=== PATIENT | male | born 1990 | race Caucasian/White ===

== ENCOUNTER 2017-12-12 23:41 | Emergency (ER) | payer MEDICAID ==
[~2017-12-12] VITALS: Ht 193 cm; Wt 72.6 kg
[2017-12-12] MEDS ORDERED: LORazepam Inj 2mg/ml 1ml IM ONE (23:45)
[2017-12-13] VITALS: BP 118/96
--- NOTE | 2017-12-13 00:22 | Emergency Room Report ---
History of Present Illness General Chief Complaint: Overdose Source: Patient Present Illness HPI Is a 27-year-old male with no past medical history. He presents with chief complaint of feeling anxious and shaky since his been smoking methamphetamine all day today. He was doing this to "partying it up." Denies suicidal thoughts or homicidal thought. Denies hallucination or delusion. [place] numb and stiff throughout his body. Call 911. Never had this problem before. Allergies: Coded Allergies: No Known Allergies (Unverified , 12/12/17) Patient History Past Medical History: see triage record, old chart reviewed Past Surgical History: other Pertinent Family History: none Social History: Reports: drug use Immunizations: other Reviewed Nursing Documentation: PMH: Agreed; PSxH: Agreed Nursing Documentation-PMH Hx Gastrointestinal Problems: Yes - Hepatitis c Review of Systems Eye: Denies: eye pain, blurred vision ENT: Denies: ear pain, nose congestion, throat swelling Respiratory: Denies: cough, shortness of breath Cardiovascular: Denies: chest pain, palpitations Gastrointestinal: Denies: abdominal pain, diarrhea, nausea, vomiting Musculoskeletal: Denies: back pain, joint pain Skin: Denies: rash Neurological: Denies: headache, numbness Endocrine: Denies: increased thirst, increased urine Hematologic/Lymphatic: Denies: easy bruising All Other Systems: negative except mentioned in HPI Physical Exam Vital Signs Date Time Temp Pulse Resp B/P (MAP) Pulse Ox O2 Delivery O2 Flow Rate FiO2 12/12/17 23:36 97.8 104 18 132/70 99 Room Air 97.9 vitals unremarkable Sp02 EP Interpretation: reviewed, normal General Appearance: well appearing, no apparent distress, alert Head: normocephalic, atraumatic Eyes: bilateral eye PERRL, bilateral eye EOMI ENT: hearing grossly normal, normal pharynx Neck: full range of motion, supple, no meningismus Respiratory: chest non-tender, lungs clear, normal breath sounds Cardiovascular #1: regular rate, rhythm, no murmur Gastrointestinal: normal bowel sounds, non tender, no mass, no organomegaly, no bruit, non-distended Musculoskeletal: back normal, gait/station normal, normal range of motion Neurologic: alert, oriented x3 Psychiatric: anxious Skin: warm/dry Medical Decision Making Diagnostic Impression: Primary Impression: Panic attack Additional Impression: Methamphetamine abuse ER Course Patient with a panic attack from amphetamine. No suicidal thoughts homicidal thought. No criteria for 5150. This patient is a chronic risk of self injury due to poor impulse control, limited coping skills, and judgment intermittently impaired by intoxication. I believe that the available clinical evidence to suggest that these characteristics derived primarily from personality disorder and are likely very stable over time. Hospitalization would likely attenuate risk of self-harm only during residential period, without lasting risk reduction. Serious self-harm , while possible, would likely be inadvertent, and because of impulsivity, and foreseeable. For these reasons, I do not believe hospitalization would provide meaningful reduction in risk of self-harm. Last Vital Signs Date Time Temp Pulse Resp B/P (MAP) Pulse Ox O2 Delivery O2 Flow Rate FiO2 12/13/17 00:00 84 20 12/13/17 00:00 97.8 118/96 98 Room Air 97.8 Status: improved Disposition: HOME, SELF-CARE Condition: Stable Additional Instructions: Stop using drugs. Follow-up with your doctor in 7 days. Go to rehabilitation. Return if worse. Javon Claire MD Dec 13, 2017 00:22
[2017-12-13 06:26] VITALS: BP 115/75
== END 2017-12-13 04:00 | disposition home or self-care (01) ==
LOC: EDBD 23:41 → EMR 12-13 03:46
DX: F41.0 Panic disorder [episodic paroxysmal anxiety] (principal); F15.10 Other stimulant abuse, uncomplicated
CPT/HCPCS: 96372; 99283

== ENCOUNTER 2018-12-05 12:27 | Emergency (ER) | payer MEDICAID ==
[~2018-12-05] VITALS: Ht 193 cm; Wt 77.1 kg
[~2018-12-05 12:27] MED LIST: LITHIUM CARBON300 M3 PO; OLANZAPINE20 MG ORAL
--- NOTE | 2018-12-05 12:30 | NUR ---
ED Nurse Note: PATIENT BROUGHT IN BY AMBULANCE [address], PATIENT CALLED [facility] FOR FEELING ANXIOUS AFTER TAKING CRYSTAL METH. patient is alert awake x3 ambulatory, breathing unlabored and even, appears to be calm and drowsy. patient placed in a room, provided hospital gown. vital signs stable.
--- NOTE | 2018-12-05 12:34 | NUR ---
ED Nurse Note: patient reports he did "20 sacs of meth" which he smoked, he reports he did meth "to get high." patient denies any suicidal ideation at this time. patient reports he called [facility] because he became anxious that his "breathing might stop" patient's vital signs stable.
--- NOTE | 2018-12-05 12:46 | Emergency Room Report ---
History of Present Illness General Chief Complaint: Substance Abuse Source: Patient, EMS Present Illness HPI 28-year-old male patient presents the ER brought by ambulance complaining of methamphetamine use. Patient reports that he has a history of meth use, previously seen in this ER for similar symptoms. Denies chest pain or shortness of breath. Reports feeling cold. Patient is resting comfortably in bed in no acute distress. Denies vomiting or other factors. Denies thoughts of hurting himself or others. Allergies: Coded Allergies: No Known Allergies (Unverified , 12/12/17) Patient History Past Medical History: see triage record Reviewed Nursing Documentation: PMH: Agreed; PSxH: Agreed Nursing Documentation-PMH Past Medical History: No History, Except For Hx Gastrointestinal Problems: Yes - Hepatitis c Review of Systems All Other Systems: negative except mentioned in HPI Physical Exam Vital Signs Date Time Temp Pulse Resp B/P (MAP) Pulse Ox O2 Delivery O2 Flow Rate FiO2 12/05/18 12:21 97.5 99 18 136/78 (97) 98 Room Air Sp02 EP Interpretation: reviewed, normal General Appearance: well appearing, no apparent distress, alert, GCS 15, non- toxic Head: normocephalic, atraumatic, other - Negative donahue sign, negative raccoon eyes Eyes: bilateral eye normal inspection, bilateral eye PERRL ENT: hearing grossly normal, normal pharynx, no angioedema, normal voice, uvula midline, moist mucus membranes Neck: full range of motion Respiratory: lungs clear, normal breath sounds, no rhonchi, no respiratory distress, no accessory muscle use, no wheezing, speaking full sentences Cardiovascular #1: regular rate, rhythm, no edema Musculoskeletal: back normal, digits/nails normal, gait/station normal, normal range of motion, non-tender Neurologic: alert, oriented x3, responsive, motor strength/tone normal, sensory intact Psychiatric: mood/affect normal Medical Decision Making PA Attestation Dr. Felix is my supervising Physician whom patient management has been discussed with. Diagnostic Impression: Primary Impression: Substance abuse ER Course Pt. presents to the ED c/o meth use. Ddx considered but are not limited to anxiety, depression, drug use, alcohol use , behavioral disorder. Vital signs: are WNL, pt. is afebrile ER COURSE: EKG normal, no ST elevations, no a fib. Patient initial tachycardia has since subsided, likely due to methamphetamine abuse. Patient has been resting since that time in his bed without difficulties for several hours. Denies thoughts of hurting self or others. Requesting food. Eating and drinking without difficulty. Advised patient against drug use. Patient OK for discharge. DISCHARGE: At this time pt is stable for d/c to home. Patient is resting comfortably, in no acute distress, nontoxic appearing, talking without difficulty. Patient to take medications as instructed Will provide with patient care instructions and any necessary prescriptions. Care plan and follow-up instructions provided. Patient instructed to follow-up with primary care provider in 3 - 5 days. Patient questions asked and answered. Patient reports understanding and agreement to treatment plan. ER precautions given. Patient instructed to return to ER immediately for any new or worsening of symptoms including but not limited to increasing SOB, persistent fever, chest pain, intractable vomiting. - Please note that this Emergency Department Report was dictated using [employer] spr[employer] designer technology software, occasionally this can lead to erroneous entry secondary to interpretation by the dictation equipment. EKG Diagnostic Results Rate: normal Rhythm: NSR ST Segments: no acute changes ASA given to the pt in ED: No PA Scribe Text Ori Cardona PA-C Rhythm Strip Diag. Results EP Interpretation: yes Rate: 63 Rhythm: NSR, no PVC's, no ectopy PA Scribe Shanita Cardona PA-C Last Vital Signs Date Time Temp Pulse Resp B/P (MAP) Pulse Ox O2 Delivery O2 Flow Rate FiO2 12/05/18 12:21 97.5 99 18 136/78 (97) 98 Room Air Status: improved Disposition: HOME, SELF-CARE Condition: Stable Patient Instructions: Stimulant Use Disorder-Methamphetamines, Substance Use Disorder Additional Instructions: Followup with primary care provider in 3 -5 days. Do not use drugs. Take medications as directed. Patient questions asked and answered. ER precautions given, patient instructed to return to ER immediately for any new or worsening of symptoms. Rex Cardona Dec 05, 2018 12:46
[2018-12-05 17:30] VITALS: BP 129/72
--- NOTE | 2018-12-05 17:55 | NUR ---
ER DISCHARGE NOTE: Patient is cleared to be discharged per MAGDALENO Gonzalez, pt is aox4, on room air, with stable vital signs. pt was given dc and prescription instructions, pt was able to verbalize understanding, pt id band removed without complications. pt is able to ambulate with steady gait. pt took all belongings. bus tokens provided to the patient.
[2018-12-05 17:56] VITALS: BP 136/78
--- NOTE | 2018-12-07 11:39 | Cardiology Report ---
APPROVED REPORT EKG Measurement Heart [id number] Normal sinus rhythm Normal ECG
== END 2018-12-05 17:56 | disposition home or self-care (01) ==
LOC: EDBD 12:27 → EMR 12:57
DX: F15.10 Other stimulant abuse, uncomplicated (principal); B19.20 Unspecified viral hepatitis C without hepatic coma
CPT/HCPCS: 93005; Z7502; 99283

== ENCOUNTER 2019-07-09 16:00 | Emergency (ER) | payer MEDICAID ==
[2019-07-09] VITALS (9 sets, daily range): BP systolic 131–137; BP diastolic 79–84
[~2019-07-09] VITALS: Ht 193 cm; Wt 72.6 kg
--- NOTE | 2019-07-09 16:00 | NUR ---
ED Nurse Note: Patient NEM[facility] [address] and [employer] after bystander called 911 d/t patient acting strangely in public. Patient found in street by EMS screaming incoherently, rambling, and behaving aggressively, which he continues to do in the ED. Patient states he wants to be examined d/t smoking too much crystal meth. Patient combative, attempting to hit police officers and staff. Patient in violent restraints. Bilateral femoral and radial pulses strong, skin blanchable. Addendum: 07/09/19 at 1720 by NFIELDS ED Nurse Note: Bilateral dorsalis pedis pulses strong
[2019-07-09] MEDS ORDERED: DiphenhydrAMINE 50mg/ml Inj IM ONE (16:15)
[2019-07-09] MEDS ORDERED: LORazepam Inj 2mg/ml 1ml IM ONE (16:15)
[2019-07-09] MEDS ORDERED: Haloperidol 5mg/ml Inj IM ONE (16:15)
--- NOTE | 2019-07-09 16:20 | NUR ---
ED Nurse Note: Patient given medications as ordered.
--- NOTE | 2019-07-09 16:45 | NUR ---
ED Nurse Note: Patient resting in bed. Attempted removal of violent restraint, patient immediately attempted to hit staff.
--- NOTE | 2019-07-09 16:54 | NUR ---
ED Nurse Note: Blood and urine collected and sent to lab.
[2019-07-09 17:00] LABS: BASOPHILS % (AUTO) 1.4 % (0.0-2.0); EOSINOPHILS % (AUTO) 0.7 % (0.0-3.0); HEMATOCRIT 42.4 % (42.0-52.0); HEMOGLOBIN 13.4 G/DL (14.2-18.0); MEAN CORPUSCULAR VOLUME 91 FL (80-99); MONOCYTES % (AUTO) 7.8 % (1.0-10.0); NEUTROPHILS % (AUTO) 61.1 % (45.0-75.0); PLATELET COUNT 251 K/UL (150-450); RED BLOOD COUNT 4.67 M/UL (4.70-6.10); RED CELL DISTRIBUTION WIDTH 12.6 % (11.6-14.8)
[2019-07-09 17:02] LABS: APPEARANCE,URINE CLEAR; BILIRUBIN, URINE NEGATIVE (NEGATIVE); COLOR,URINE PALE YELLOW; GLUCOSE, URINE (UA) NEGATIVE (NEGATIVE); KETONES,URINE NEGATIVE (NEGATIVE); LEUKOCYTE ESTERASE ,URINE NEGATIVE (NEGATIVE); NITRITE,URINE NEGATIVE (NEGATIVE); PH,URINE 7 (4.5-8.0); PROTEIN,URINE NEGATIVE (NEGATIVE); UROBILINOGEN,URINE NORMAL MG/DL (0.0-1.0)
[2019-07-09 17:15] LABS: ANION GAP 9 mmol/L (5-15); BLOOD UREA NITROGEN 16 mg/dL (7-18); CALCIUM 9.1 MG/DL (8.5-10.1); CARBON DIOXIDE 26 MMOL/L (21-32); CHLORIDE 103 MMOL/L (98-107); CREATININE 1.6 MG/DL (0.55-1.30); POTASSIUM 3.5 MMOL/L (3.5-5.1); SODIUM 138 MMOL/L (136-145)
[2019-07-09 17:19] LABS: ALANINE AMINOTRANSFERASE 44 U/L (12-78); ALBUMIN 3.8 G/DL (3.4-5.0); ALBUMIN/GLOBULIN RATIO 1.3 (1.0-2.7); ALKALINE PHOSPHATASE 85 U/L (46-116); ASPARTATE AMINO TRANSFERASE 31 U/L (15-37); BILIRUBIN,TOTAL 0.4 MG/DL (0.2-1.0)
--- NOTE | 2019-07-09 17:20 | NUR ---
ED Nurse Note: Verbal order received from Dr. Martinez to DC behavioral restraints if safe to do so.
--- NOTE | 2019-07-09 17:20 | NUR ---
ED Nurse Note: Behavioral restraints removed. Patient asleep. Calm cooperative. Skin intact, bilateral radial and dorsalis pedis pulses strong, no s/s of acute distress.
--- NOTE | 2019-07-09 17:20 | Emergency Room Report ---
History of Present Illness General Chief Complaint: Overdose Source: Patient (Rebel Martinez MD) Present Illness HPI Patient is a 29-year-old male brought in from the street after increased agitation. Patient had been brought on by EMS with [employer]. Reportedly had taken methamphetamine earlier in the day. He was noted to be agitated.History is limited by poor historian. (Rebel Martniez MD) Allergies: Coded Allergies: No Known Allergies (Unverified , 12/12/17) COVID-19 Screening Contact w/high risk pt: No Recent Travel to affected area: No Experienced COVID-19 symptoms?: No (Rebel Martinez MD) Patient History Reviewed Nursing Documentation: PMH: Agreed; PSxH: Agreed (Rebel Martinez MD) Nursing Documentation-PMH Past Medical History: No Stated History Hx Gastrointestinal Problems: Yes - Hepatitis c (Rebel Martinez MD) Review of Systems All Other Systems: limited - Review of systems: Review systems is limited by patient's being a poor historian (Rebel Martinez MD) Physical Exam Vital Signs Date Time Temp Pulse Resp B/P (MAP) Pulse Ox O2 Delivery O2 Flow Rate FiO2 07/09/19 15:54 98.2 110 20 137/83 (101) 97 Room Air Sp02 EP Interpretation: reviewed, normal General Appearance: normal inspection, well appearing, no apparent distress, alert, GCS 15 Head: atraumatic ENT: normal ENT inspection, hearing grossly normal, normal voice Neck: normal inspection, full range of motion, supple, no bony tend Respiratory: normal inspection, lungs clear, normal breath sounds, no respiratory distress, no retraction, no wheezing Cardiovascular #1: regular rate, rhythm, no edema Gastrointestinal: normal inspection, normal bowel sounds, non tender, soft, no guarding, no hernia Genitourinary: no CVA tenderness Musculoskeletal: normal inspection, back normal, normal range of motion Neurologic: alert, motor strength/tone normal, neighborhood service [facility] director III-XII nml as tested, oriented x3, responsive, speech normal, normal inspection Psychiatric: other - agitated yelling Skin: no rash (Rebel Martinez MD) Medical Decision Making Restraint Attestation I, Rebel Martinez MD, have personally evaluated this patient. Laboratory tests have been reviewed and addressed accordingly. The patient is deemed to present a danger to themselves and/or others. This is based on the exam, history ( provided by patient, EMS/[employer] and/or family) and observed or reported behavior. Attempts for non-invasive measures have been considered and/or attempted, however, have been futile. It is in the best interest of the nursing staff, the patient, and others involved in this patient's care that behavioral restraints be applied. Patient evaluation reveals the following: Patient with marked agitation and threatening (Rebel Martinez MD) Diagnostic Impression: Primary Impression: Methamphetamine abuse Additional Impression: Psychosis Qualified Codes: F23 - Brief psychotic disorder ER Course Patient presented for increased agitation. Differential diagnoses include substance abuse, psychosis, bipolar disorder, depression, malingering. Because of complexity of patient's case laboratory tests and imaging studies were ordered.Patient was noted to have initial market agitation and was given medications for sedation shortly after arrival. Patient was initially placed in restraints.Patient was given sedative medications and was subsequently released from restraints. Patient is medically cleared for psychiatric evaluation if needed. Patient endorsed to Dr. Claire and will require reevaluation when more awake. Labs Test 07/09/19 16:41 07/09/19 16:51 White Blood Count 6.0 K/UL (4.8-10.8) Red Blood Count 4.67 M/UL (4.70-6.10) Hemoglobin 13.4 G/DL (14.2-18.0) Hematocrit 42.4 % (42.0-52.0) Mean Corpuscular Volume 91 FL (80-99) Mean Corpuscular Hemoglobin 28.7 PG (27.0-31.0) Mean Corpuscular Hemoglobin Concent 31.6 G/DL (32.0-36.0) Red Cell Distribution Width 12.6 % (11.6-14.8) Platelet Count 251 K/UL (150-450) Mean Platelet Volume 6.7 FL (6.5-10.1) Neutrophils (%) (Auto) 61.1 % (45.0-75.0) Lymphocytes (%) (Auto) 29.0 % (20.0-45.0) Monocytes (%) (Auto) 7.8 % (1.0-10.0) Eosinophils (%) (Auto) 0.7 % (0.0-3.0) Basophils (%) (Auto) 1.4 % (0.0-2.0) Sodium Level 138 MMOL/L (136-145) Potassium Level 3.5 MMOL/L (3.5-5.1) Chloride Level 103 MMOL/L (98-107) Carbon Dioxide Level 26 MMOL/L (21-32) Anion Gap 9 mmol/L (5-15) Blood Urea Nitrogen 16 mg/dL (7-18) Creatinine 1.6 MG/DL (0.55-1.30) Estimat Glomerular Filtration Rate 51.4 mL/min (>60) Glucose Level 101 MG/DL (74-106) Calcium Level 9.1 MG/DL (8.5-10.1) Total Bilirubin 0.4 MG/DL (0.2-1.0) Aspartate Amino Transf (AST/SGOT) 31 U/L (15-37) Alanine Aminotransferase (ALT/SGPT) 44 U/L (12-78) Alkaline Phosphatase 85 U/L (46-116) Total Protein 6.7 G/DL (6.4-8.2) Albumin 3.8 G/DL (3.4-5.0) Globulin 2.9 g/dL Albumin/Globulin Ratio 1.3 (1.0-2.7) Salicylates Level 1.7 ug/mL (2.8-20) Acetaminophen Level < 2 MCG/ML (10-30) Serum Alcohol < 3 mg/dL Urine Color Pale yellow Urine Appearance Clear Urine pH 7 (4.5-8.0) Urine Specific [place] 1.005 (1.005-1.035) Urine Protein Negative (NEGATIVE) Urine Glucose (UA) Negative (NEGATIVE) Urine Ketones Negative (NEGATIVE) Urine Blood Negative (NEGATIVE) Urine Nitrite Negative (NEGATIVE) Urine Bilirubin Negative (NEGATIVE) Urine Urobilinogen Normal MG/DL (0.0-1.0) Urine Leukocyte Esterase Negative (NEGATIVE) Urine Opiates Screen Negative (NEGATIVE) Urine Barbiturates Screen Negative (NEGATIVE) Phencyclidine (PCP) Screen Negative (NEGATIVE) Urine Amphetamines Screen Positive (NEGATIVE) Urine Benzodiazepines Screen Negative (NEGATIVE) Urine Cocaine Screen Negative (NEGATIVE) Urine Marijuana (THC) Screen Negative (NEGATIVE) (Rebel Martinez MD) ER Course This patient signed out to me. He presents with chief complaint of acute agitation and psychosis secondary to substance abuse. He was sedated. He slept for several hours. He was able to get up and urinate without any issue. Walking without any problem. Will discharge home in the morning. He is has no criteria for 5150. Not suicidal homicidal. No longer psychotic. This patient is a chronic risk of self injury due to poor impulse control, limited coping skills, and judgment intermittently impaired by intoxication. I believe that the available clinical evidence to suggest that these characteristics derived primarily from personality disorder and are likely very stable over time. Hospitalization would likely attenuate risk of self-harm only during mcfp period, without lasting risk reduction. Serious self-harm , while possible, would likely be inadvertent, and because of impulsivity, and foreseeable. For these reasons, I do not believe hospitalization would provide meaningful reduction in risk of self-harm. (Javon Claire MD) Last Vital Signs Date Time Temp Pulse Resp B/P (MAP) Pulse Ox O2 Delivery O2 Flow Rate FiO2 07/09/19 15:54 98.2 110 20 137/83 (101) 97 Room Air Status: improved (Rebel Martinez MD) Status: improved (Javon Claire MD) Disposition: HOME, SELF-CARE Condition: Stable Referrals: [facility] (PCP) Additional Instructions: Stop using drugs. Go to rehab. Follow-up with in 7 days. Return if worse. Rebel Martinez MD July 09, 2019 17:20 Javon Claire MD July 10, 2019 02:51
--- NOTE | 2019-07-09 18:10 | NUR ---
Note bryant in EDM - 07/09/19 at 1920 by ELIDAS ED Nurse Note: Patient resting in bed. Attempted removal of violent restraint, patient immediately attempted to hit staff.
--- NOTE | 2019-07-09 19:10 | NUR ---
HAND-OFF: Report given to Elizabeth NELSON.
--- NOTE | 2019-07-09 19:15 | NUR ---
ED Nurse Note: Report received from LESLIE Baez. Pt is resting in bed with eyes closed. Pt removed from restraints with no complications. Skin, CMS intact. Pt is calm, no aggressive behavior at this time. Will cont. to monitor.
--- NOTE | 2019-07-09 22:30 | NUR ---
ED Nurse Note: Pt is still lethargic at this time. ERMD aware, will continue to let patient sleep and monitor. NAD.
[2019-07-10 01:30] VITALS: BP 133/68
--- NOTE | 2019-07-10 01:30 | NUR ---
ED Nurse Note: Pt is laying in bed with eyes closed, VSS. Will cont. to monitor.
--- NOTE | 2019-07-10 03:15 | NUR ---
ED Nurse Note: Pt remains sleeping at this time. NAD.
--- NOTE | 2019-07-10 05:25 | NUR ---
ED Nurse Note: Pt is awake, aaox4, no acute distress. Pt is ambulatory with steady gait. Pt refused to disclose plan after DC or place of residence. Pt requested list of housing options and was given proper information via paper handout.
[2019-07-10 05:30] VITALS: BP 125/71
--- NOTE | 2019-07-10 05:30 | NUR ---
ED Nurse Note: Pt provided with meal upon DC and jacket.
--- NOTE | 2019-07-10 05:30 | NUR ---
ER DISCHARGE NOTE: Patient is cleared to be discharged per ERMD, pt is aox4, on room air, with stable vital signs. pt was given dc and prescription instructions, pt was able to verbalize understanding, pt id band and iv site removed without complications. pt is able to ambulate with steady gait. pt took all belongings.
== END 2019-07-10 05:42 | disposition home or self-care (01) ==
LOC: EDBD 16:00 → EMR 16:28
DX: F15.10 Other stimulant abuse, uncomplicated (principal); F23 Brief psychotic disorder; Z86.19 Personal history of other infectious and parasitic diseases
CPT/HCPCS: 36415; 80053; 80307; 81003; 85025; 96372; G0480; G0481; J1200; J1630; Z7502; 99284